=== PATIENT | female | born 1980 | race Caucasian/White ===

== ENCOUNTER 2020-02-06 14:30 | Emergency (ER) | payer MEDICAID, OTHER ==
[~2020-02-06] VITALS: Ht 160 cm; Wt 65.0 kg
[~2020-02-06 14:30] MED LIST: CLIN300C9 PO; GARL1TAB2 PO; KRILL PO; L.AC1CAP6 PO; vitamin e PO
--- NOTE | 2020-02-06 14:55 | NUR ---
PT TAKEN TO IMAGING AT THIS TIME. 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
[2020-02-06] MEDS ORDERED: BUPRENORPHINE HCL 2 MG TAB.SUBL SL ONE (16:00)
[2020-02-06 16:27] VITALS: BP 135/96
--- NOTE | 2020-02-06 16:32 | NUR ---
PT READY FOR DC WITH DEPUTY. AWAITING RIDE.
== END 2020-02-06 16:29 | disposition home or self-care (01) ==
LOC: ED 16:20
DX: F11.10 Opioid abuse, uncomplicated (principal); R11.2 Nausea with vomiting, unspecified
CPT/HCPCS: 71045; 74018; 99284